=== PATIENT | male | born 1975 | race Two or more races ===

== ENCOUNTER 2018-03-27 21:23 | Emergency (ER) | payer OTHER ==
[~2018-03-27] VITALS: Ht 172.7 cm; Wt 81.6 kg
--- NOTE | 2018-03-27 21:37 | NUR ---
BIB [facility] C/C OF SEIZURE. AA/OX4. PT STATE" I WENT INTO CHECK MY SELF INTO A CLINIC FOR SI, THEN I DON'T KNOW WHAT HAPPENED." NO INCONTINENCE. NO TRAUMA NOTED FROM HEAD TO TOE. VSS. NAD. NO S/S OF SOB. DENIES CHEST PAIN. PA AT BEDSIDE. AWAITING ORDERS.
--- NOTE | 2018-03-27 21:44 | NUR ---
PT GOING TO CT
[2018-03-27] MEDS ORDERED: IV NS 0.9% 1,000 ML BAG IV ONE (22:00)
[2018-03-27 22:08] LABS: BASOPHILS % (AUTO) 0.4 % (0.0-2.0); EOSINOPHILS % (AUTO) 2.3 % (0.0-6.0); HEMATOCRIT 43 % (39-51); LYMPHOCYTES # (AUTO) 2.2 /CMM (0.8-4.8); LYMPHOCYTES % (AUTO) 25.4 % (20.0-44.0); MEAN CORPUSCULAR HEMOGLOBIN 27 PG (26.0-33.0); MEAN CORPUSCULAR HGB CONC 33 g/dl (31.0-36.0); MEAN CORPUSCULAR VOLUME 84 fL (80-96); MONOCYTES # (AUTO) 0.4 /CMM (0.1-1.30); MONOCYTES % (AUTO) 4.2 % (2.0-12.0); NEUTROPHILS # (AUTO) 5.9 /CMM (1.8-8.9); NEUTROPHILS % (AUTO) 67.7 % (43.0-81.0); PLATELET COUNT (AUTO) 325 /CMM (150-450); RDW COEFFICIENT OF VARIATION 15.5 (11.5-15.0); RED BLOOD CELL COUNT(AUTO) 5.13 MIL/uL (4.5-6.0); WHITE BLOOD COUNT (AUTO) 8.8 K/uL (4.3-11.0)
[2018-03-27 22:29] LABS: CARBON DIOXIDE 21 mmol/L (21-32); CHLORIDE 102 mmol/L (98-107); CREATININE 1.4 mg/dL (0.6-1.3); GLUCOSE 115 mg/dL (74-106); INR 0.96 (0.87-1.13); POTASSIUM 4.2 mmol/L (3.5-5.1); SODIUM SERUM 135 mmol/L (136-145); UREA NITROGEN, BLOOD 19 mg/dL (7-18)
[2018-03-27 22:35] LABS: ALANINE AMINOTRANSFERASE 55 U/L (12-78); ALBUMIN 4.1 g/dL (3.4-5.0); ALCOHOL, BLOOD < 3 mg/dL (0-0); ALKALINE PHOSPHATASE 66 U/L (46-116); ASPARTATE AMINOTRANSFERASE 28 U/L (15-37); BILIRUBIN,DIRECT 0.1 mg/dL (0.0-0.2); BILIRUBIN,TOTAL 0.4 mg/dL (0.2-1.0); TOTAL PROTEIN, SERUM 8.3 g/dL (6.4-8.2)
--- NOTE | 2018-03-27 22:35 | NUR ---
APPROXIMATELY 2034 PT HAD SEIZURE EPISODE. PT WAS SUCTIONED. IV ON RT WRIST WAS PULLED OUT AND REESTABLISHED. NO ORAL TRAUMA OR TRAUMA FROM HEAD TO TOE. PT CURRENTLY POSTICTAL. AA/O X1 TO ONLY TO NAME. SEIZURE PRECAUTIONS IN PLACE. SAFETY MEASURES IN PLACE. O2 15LPM VIA NRB. VSS.
[2018-03-27] MEDS ORDERED: LORAZEPAM INJ 2 MG/ML VIAL ONE (22:37)
[2018-03-27] MEDS ORDERED: LORAZEPAM INJ 2 MG/ML VIAL IV ONE (23:00)
--- NOTE | 2018-03-27 23:11 | NUR ---
PT AA/OX2 TO PERSON AND PLACE. STABLE CONDITION. VSS. SAFETY MEASURES IN PLACE. CALL LIGHT WITHIN REACH. REPLACED O2 NRB 15LPM TO NC 4LPM. NOTIFIED OF PT STATUS. WILL CONTINUE TO MONITOR.
--- NOTE | 2018-03-28 00:07 | NUR ---
Jocelyn VAUGHAN, RN/CHG SPOKE TO OLYA (INTAKE) AT [facility]. THERE IS STILL A BED FOR THE PT AT THEIR FACILITY. DR. FOREMAN NOTIFIED.
[2018-03-28] MEDS ORDERED: LEVETIRACETAM (500MG) 500 MG in IV NS 0.9% 100 ML IV SCH (00:30)
[2018-03-28] MEDS ORDERED: LEVETIRACETAM (500MG) 500 MG/5 ML VIAL IV ONE (00:31)
--- NOTE | 2018-03-28 02:02 | NUR ---
REPORT GIVEN TO KESHIA LOMELI. COPY OF LABS AND IMAGING GIVEN. Patient discharged to home in stable condition. Written and verbal after care instructions given. EMT verbalizes understanding of instruction AND RX. IV removed. Catheter intact and site benign. Pressure and 4x4 applied to site. No bleeding noted. PT LEFT VIA AMBULANCE. VSS
[2018-03-28 02:04] VITALS: BP 126/83
--- NOTE | 2018-03-28 02:11 | NUR ---
REPORT GIVEN TO [facility].
== END 2018-03-28 02:05 | disposition home or self-care (01) ==
LOC: ER 21:24
DX: R56.9 Unspecified convulsions (principal); F31.9 Bipolar disorder, unspecified; F20.9 Schizophrenia, unspecified; Z88.8 Allergy status to other drugs, medicaments and biological substances
CPT/HCPCS: 36415; 70450; 71045; 80048; 80076; 80305; 82962; 84443; 85025; 85730; 93005; 96365; 96375; 99285; A4606; G0480; J1953 ×2; J2060; J7030 ×3; Z7610